=== PATIENT | female | born 1955 | race Caucasian/White ===

== ENCOUNTER 2020-01-14 16:44 | Outpatient (CLI) | payer OTHER, SELFPAY ==
[2020-01-14 17:18] LABS: Hemoglobin 12.6 g/dL (12.0-15.0); Mean Corpuscular HGB Conc 34.1 g/dl (32-36); Mean Corpuscular Hemoglobin 29.1 pg (26-34); Mean Corpuscular Volume 85.5 fl (80-100); Mean Platelet Volume 10.7 fl (7.4-10.4); Platelet Count Result 253 k/mm3 (150-375); Red Blood Count 4.33 M/mm3 (4.2-5.4); Red Cell Distribution Width 12.4 % (11.5-14.5); White Blood Count 7.8 K/mm3 (4.5-10.0)
[2020-01-14 17:30] LABS: Alanine Aminotransferase 24 U/L (4-35); Albumin Level 4.2 g/dL (3.5-5.1); Alkaline Phosphatase 70 U/L (38-126); Aspartate Amino Transferase 25 U/L (14-36); Bilirubin,Total 0.2 mg/dL (0.2-1.3); Blood Urea Nitrogen 20 mg/dL (7-17); Calcium 8.7 mg/dL (8.4-10.2); Carbon Dioxide 28 mmol/L (22-30); Chloride 90 mmol/L (98-107); Cholesterol 190 mg/dL (0-200); Estimated Glomerular Filt Rate > 60; Glucose 98 mg/dL (65-105); HDL Direct 34 mg/dL; Potassium 3.6 mmol/L (3.4-5.0); Sodium 131 mmol/L (137-145); Triglycerides 284 mg/dL (<150)
[2020-01-14 17:41] LABS: LDL Cholesterol Direct 124 mg/dL
== END 2020-01-14 16:45 | disposition home or self-care (01) ==
LOC: ANHLAB 16:47
PROVIDERS: PCP Internal Medicine; Visit Provider Internal Medicine
DX: J44.9 Chronic obstructive pulmonary disease, unspecified (principal); E78.9 Disorder of lipoprotein metabolism, unspecified; I10 Essential (primary) hypertension
CPT/HCPCS: 36415; 80053; 80061; 85027

== ENCOUNTER 2020-02-13 09:21 | Outpatient (CLI) | payer OTHER, SELFPAY ==
[2020-02-13 10:09] LABS: Alanine Aminotransferase 14 U/L (4-35); Albumin Level 4.3 g/dL (3.5-5.1); Alkaline Phosphatase 76 U/L (38-126); Aspartate Amino Transferase 19 U/L (14-36); Bilirubin,Total 0.3 mg/dL (0.2-1.3); Blood Urea Nitrogen 13 mg/dL (7-17); Calcium 9.1 mg/dL (8.4-10.2); Carbon Dioxide 29 mmol/L (22-30); Chloride 100 mmol/L (98-107); Cholesterol 189 mg/dL (0-200); Estimated Glomerular Filt Rate > 60; Glucose 101 mg/dL (65-105); HDL Direct 40 mg/dL; Potassium 4.2 mmol/L (3.4-5.0); Sodium 136 mmol/L (137-145); Triglycerides 106 mg/dL (<150)
[2020-02-13 10:20] LABS: LDL Cholesterol Direct 143 mg/dL
== END 2020-02-13 09:22 | disposition home or self-care (01) ==
LOC: ANHLAB 09:25
PROVIDERS: PCP Internal Medicine; Visit Provider Internal Medicine
DX: E78.9 Disorder of lipoprotein metabolism, unspecified (principal); J44.9 Chronic obstructive pulmonary disease, unspecified
CPT/HCPCS: 36415; 80053; 80061

== ENCOUNTER 2020-05-07 08:12 | Outpatient (CLI) | payer OTHER, SELFPAY ==
[2020-05-07 08:34] LABS: Hematocrit 36.6 % (37.0-47.0); Hemoglobin 12.2 g/dL (12.0-15.0); Mean Corpuscular HGB Conc 33.3 g/dl (32-36); Mean Corpuscular Hemoglobin 29.5 pg (26-34); Mean Corpuscular Volume 88.4 fl (80-100); Mean Platelet Volume 11.7 fl (7.4-10.4); Platelet Count Result 240 k/mm3 (150-375); Red Blood Count 4.14 M/mm3 (4.2-5.4); Red Cell Distribution Width 12.3 % (11.5-14.5); White Blood Count 6.3 K/mm3 (4.5-10.0)
[2020-05-07 08:44] LABS: Blood Urea Nitrogen 16 mg/dL (7-17); Carbon Dioxide 28 mmol/L (22-30); Chloride 102 mmol/L (98-107); Estimated Glomerular Filt Rate > 60; Glucose 116 mg/dL (65-105); Potassium 3.9 mmol/L (3.4-5.0); Sodium 137 mmol/L (137-145)
== END 2020-05-07 08:13 | disposition home or self-care (01) ==
LOC: ANHLAB 08:15
PROVIDERS: PCP Internal Medicine; Visit Provider Internal Medicine
DX: E78.9 Disorder of lipoprotein metabolism, unspecified (principal); F41.9 Anxiety disorder, unspecified; I10 Essential (primary) hypertension
CPT/HCPCS: 36415; 80048; 85027